=== PATIENT | female | born 1930 | race Asian ===

== ENCOUNTER 2017-10-17 22:13 | Observation (INO) ==
[2017-10-17 23:12] LABS: Basophils % 0.3 %; Eosinophils # 0.4 K/mcL (0.0-0.6); Eosinophils % 3.6 %; Hematocrit 34.6 % (35.3-44.9); Hemoglobin 11.4 g/dL (11.5-15.4); Immature Granulocytes % 0.7 % (0-4); Lymphocytes # 1.4 K/mcL (0.6-4.6); Lymphocytes % 13.5 %; Mean Corpuscular HGB Conc 32.9 g/dL (31.6-35.5); Mean Corpuscular Hemoglobin 31.9 pg (28.0-33.3); Mean Corpuscular Volume 96.9 fL (83.0-100.0); Mean Platelet Volume 9.9 fL (9.4-12.4); Monocytes # 1.3 K/mcL (0.0-1.3); Monocytes % 12.4 %; Platelet Count 169 K/mcL (140-400); Red Blood Count 3.57 M/mcL (3.82-4.97); Red Cell Distribution Width 13.2 % (11.5-14.5); Segmented Neutrophils % 69.5 %
[2017-10-17 23:18] LABS: INR 1.2; Prothrombin Time 12.8 Seconds (9.4-12.1)
[2017-10-17 23:20] LABS: Activated Partial Thrombo Time 30.5 Seconds (26.0-36.0)
[2017-10-17 23:32] LABS: BUN/Creatinine Ratio 23 (6-26); Blood Urea Nitrogen 11 mg/dL (8-23); Carbon Dioxide 25 mEq/L (23-29); Chloride 103 mEq/L (98-107); Glucose 109 mg/dL (70-105); Osmolality,Calculated 282 (280-300); Potassium 3.8 mEq/L (3.5-5.1); Sodium 136 mEq/L (136-145); eGFR For African Americans > 60 (> 60); eGFR For Non-African Americans > 60 (> 60)
--- NOTE | 2017-10-17 23:44 | Emergency Department Note ---
Disposition Clinical Impression: History of lung cancer, Elevated troponin Chest pain Qualifiers: Chest pain type: unspecified Qualified Code(s): R07.9 - Chest pain, unspecified Disposition: Admitted As Inpatient Condition: Good Referrals: Cong Leavitt MD [Primary Care Provider] - Forms: ED Satisfaction Letter Chest Pain HPI - General Chief Complaint: ED Chest Pain Stated Complaint: chest pain/CA pt Time Seen by Provider: 10/17/17 22:15 Source: patient, family Mode of arrival: EMS Limitations: no limitations Vital Signs Reviewed: Yes Nursing Notes Reviewed: Yes - History of Present Illness HPI Narrative: This is an 87 year-old female with history of CAD/CA, HLD, recent CVA, and recent diagnosis of lung cancer. She presents from her ECF with bilateral chest pain/tightness for the past day, worse with movement. The pain seems to be to the lateral chest green, same on both sides. Patient had a pleural drain placed 2 weeks ago at [facility]. She has had about 500 mL of mikel fluid drained every other day, and 375 mL was drained yesterday. Patient denies any associated fever, cough, dyspnea, or leg pain. She has noticed swelling to both ankles today. Pt complaint: chest pain Onset (ago): day(s) (1) Duration: gradually worsening Pain Location: other (bilateral) Severity: moderate Severity scale (1-10): 6 Quality: tightness Pain Radiation: none Improves with: nothing Worsens with: movement Associated symptoms: Reports: other (bilateral pedal edema). Denies: nausea, vomiting, dyspnea, fever, cough Treatments prior to arrival chest pain: other (morphine, roxicodone) - Related Data Home Medications Medication Instructions Recorded Confirmed Multivit-Min/Iron/Folic/Lutein 1 each PO DAILY 08/22/17 10/08/17 [Centrum Silver Women Tablet] Aspirin [Adult Aspirin Regimen] 81 mg PO DAILY 09/26/17 10/08/17 Atorvastatin [Lipitor] 40 mg PO HS 09/26/17 10/08/17 Allergies Allergy/AdvReac Type Severity Reaction Status Date / Time No Known Allergies Allergy Verified 09/20/16 16:45 All systems ED: reviewed and negative except as stated. Constitutional: Reports: as per HPI. Denies: fever Cardiovascular: Reports: as per HPI, chest pain, edema (bilateral pedal edema) Respiratory: Denies: cough, dyspnea Gastrointestinal: Denies: abdominal pain, vomiting Chest Pain PMH - Past Medical History Medical history: Reports: cancer, CVA, TIA, other Surgical history: Reports: hysterectomy Psychiatric history: Reports: no psych history POT LINER history: Reports: no POT LINER history - Social History Smoking Status: Former smoker Alcohol use: Reports: none Drug use: Reports: none Physical Exam - General Limitations: no limitations General appearance: alert, in no apparent distress - Head Head exam: atraumatic, normocephalic - Eye Eye exam: Present: normal appearance - ENT ENT exam: normal exam - Neck Neck exam: Present: normal inspection - Chest Chest inspection: Present: normal inspection, other (drain site clean (bandage placed yesterday was not removed)) - Respiratory Respiratory exam: Absent: respiratory distress, wheezes, other (?diminished in bases bilaterally) - Cardiovascular Cardiovascular exam: Present: regular rate, normal rhythm, normal heart sounds - Abdominal Exam Abdominal exam: Present: soft, Non-Tender. Absent: distention - Extremities Exam Extremities exam: Present: pedal edema (trace, bilateral). Absent: calf tenderness - Back Exam Back exam: Present: normal inspection - Neurological Exam Neurological exam: Present: alert, oriented X3. Absent: motor sensory deficit - Psychiatric Psychiatric exam: Present: normal affect, normal mood - Skin Skin exam: Present: warm, dry, intact. Absent: diaphoresis Course - Reevaluation(s) Reevaluation #1: On recheck, patient is resting comfortably. Her pain is improved. Chest CTA pending. As patient's troponin is elevated, we will admit her to the hospital for rule out. At shift change, I'm signing the case over to Dr. Adam to review her chest CT result, but I'll go ahead and call for admission. Time: 00:37 - Consultations Consultation #1: Discussed case with Dr. Muhammad, and patient accepted for admission. Time: 00:48 Vital Signs Temperature 98.5 F 10/17/17 22:16 Pulse Rate 90 10/17/17 22:16 Respiratory Rate 18 10/17/17 22:16 Blood Pressure 134/79 10/17/17 22:16 O2 Sat by Pulse Oximetry 100 10/17/17 22:16 Temperature 98.5 F 10/17/17 22:16 Pulse Rate 94 10/17/17 23:30 Respiratory Rate 16 10/17/17 23:30 Blood Pressure 111/64 10/17/17 23:30 O2 Sat by Pulse Oximetry 96 10/17/17 23:30 Oxygen Delivery Oxygen Delivery Nasal Cannula Chest Pain - Lab Data Lab results reviewed: Yes I reviewed the patient's lab results. Result diagrams: 10/17/17 22:54 10/17/17 22:54 Lab Results 10/17/17 10/17/17 10/17/17 Range/Units 22:54 22:54 22:54 WBC 10.1 (4.3-11.1) K/mcL RBC 3.57 L (3.82-4.97) M/mcL Hgb 11.4 L (11.5-15.4) g/dL Hct 34.6 L (35.3-44.9) % MCV 96.9 (83.0-100.0) fL MCH 31.9 (28.0-33.3) pg MCHC 32.9 (31.6-35.5) g/dL RDW 13.2 (11.5-14.5) % Plt Count 169 (140-400) K/mcL MPV 9.9 (9.4-12.4) fL Immature Gran % 0.7 (0-4) % Seg Neutrophils % 69.5 % Lymphocytes % 13.5 % Monocytes % 12.4 % Eosinophils % 3.6 % Basophils % 0.3 % Neutrophils # 7.0 (1.6-8.9) K/mcL Lymphocytes # 1.4 (0.6-4.6) K/mcL Monocytes # 1.3 (0.0-1.3) K/mcL Eosinophils # 0.4 (0.0-0.6) K/mcL Basophils # 0.0 (0.0-0.2) K/mcL PT 12.8 H (9.4-12.1) Seconds INR 1.2 APTT 30.5 (26.0-36.0) Seconds Sodium (136-145) mEq/L Potassium (3.5-5.1) mEq/L Chloride (98-107) mEq/L Carbon Dioxide (23-29) mEq/L BUN (8-23) mg/dL Creatinine (0.60-1.20) mg/dL Est GFR ( Amer) (> 60) Est GFR (Non-Af Amer) (> 60) BUN/Creatinine Ratio (6-26) Glucose (70-105) mg/dL Calculated Osmolality (280-300) Calcium (8.6-10.3) mg/dL Troponin I (< 0.04) ng/mL B-Natriuretic Peptide 121 H (Less than 100) pg/mL 10/17/17 Range/Units 22:54 WBC (4.3-11.1) K/mcL RBC (3.82-4.97) M/mcL Hgb (11.5-15.4) g/dL Hct (35.3-44.9) % MCV (83.0-100.0) fL MCH (28.0-33.3) pg MCHC (31.6-35.5) g/dL RDW (11.5-14.5) % Plt Count (140-400) K/mcL MPV (9.4-12.4) fL Immature Gran % (0-4) % Seg Neutrophils % % Lymphocytes % % Monocytes % % Eosinophils % % Basophils % % Neutrophils # (1.6-8.9) K/mcL Lymphocytes # (0.6-4.6) K/mcL Monocytes # (0.0-1.3) K/mcL Eosinophils # (0.0-0.6) K/mcL Basophils # (0.0-0.2) K/mcL PT (9.4-12.1) Seconds INR APTT (26.0-36.0) Seconds Sodium 136 (136-145) mEq/L Potassium 3.8 (3.5-5.1) mEq/L Chloride 103 (98-107) mEq/L Carbon Dioxide 25 (23-29) mEq/L BUN 11 (8-23) mg/dL Creatinine 0.48 L (0.60-1.20) mg/dL Est GFR ( Amer) > 60 (> 60) Est GFR (Non-Af Amer) > 60 (> 60) BUN/Creatinine Ratio 23 (6-26) Glucose 109 H (70-105) mg/dL Calculated Osmolality 282 (280-300) Calcium 9.0 (8.6-10.3) mg/dL Troponin I 0.13 H* (< 0.04) ng/mL B-Natriuretic Peptide (Less than 100) pg/mL - EKG Data EKG attestation: Yes I reviewed and interpreted this EKG. EKG shows normal: sinus rhythm Rate: normal Rhythm: NSR [place]/QRS: normal Ectopy: PVC (occasional) Interpretation: nonspecific ST-T wave changes
[2017-10-17] MEDS ORDERED: Isovue-370 500 ML INFUS..BTL IV ONE (23:46)
[2017-10-17] MEDS ORDERED: *HR* OxyCODONE/APAP 5/325 TABLET PO ONE (23:46)
[2017-10-17 23:47] LABS: Troponin I 0.13 ng/mL (< 0.04)
[2017-10-17] MEDS ORDERED: Aspirin 325 MG TABLET PO ONE (23:53)
[2017-10-18] MEDS ORDERED: Naloxone 0.4 MG/ML INJ IVP PRN (02:54)
[2017-10-18] MEDS ORDERED: Ondansetron 4 MG/2 ML VIAL IVP PRN (02:58)
[2017-10-18] MEDS ORDERED: Heparin 25,000 UNIT/500 ML D5W 25,000 UNIT/500 ML BAG IVC SCH ×2 (03:00→03:15)
[2017-10-18] MEDS ORDERED: *HR* Heparin 5,000 UNIT/ML VIAL IVP ONE (03:04)
[2017-10-18] MEDS ORDERED: *HR* Heparin 5,000 UNIT/ML VIAL IVP PRN ×2 (03:04)
--- NOTE | 2017-10-18 03:08 | Internal Med History&Physical ---
Date of Encounter: 10/18/17 Time of Encounter: 02:00 Internal Medicine - H&P: HPI Chief complaint: Chest pain Admitted From: Emergency Dept Plans for Post Hospital Care: Transfer Inp Rehab Fac History of present illness: Ms. Lind is a 87 year old female with history of recent CVA without residual deficits, and recently diagnosed lung cancer (adenocarcinoma) who presented with chest pain which became severe this evening. She states that she has been having issues with chest pain ever since having pleurex catheter placed on the right side to drain a malignant pleural effusion. She developed worsening chest pain last night which was severe and radiated "everywhere". She has a difficult time describing the pain or explaining where the pain was located. Family who is present in the room state that she appeared to be in severe pain, and she is typically very stoic so they were very concerned. She is unsure if she was short of breath during the chest pain episode, and the pain was relieved in the ED with PO narcotics. Currently she states that she is chest pain free. EKG was without ischemic changes but troponin was mildly elevated at 0.13. She was told that she had an PR many years ago, did not have LHC or stents, and has had no further issues with chest pain and has not had any recent cardiac evaluation. Past Med Surg Social Fam HX - Past Medical History Medical history: cancer (Lung adenocarcinoma diagnosed 09/2017), coronary artery disease (PR ~40 years ago), CVA, TIA, other Psychiatric history: no psych history - Past Surgical History Surgical History: hysterectomy - Social History Smoking Status: Former smoker Smokeless Tobacco Status: No Alcohol use: none Drug use: none - Family History Mother History Unknown: Yes Father History Unknown: Yes Internal Medicine - H&P: Meds Multivit-Min/Iron/Folic/Lutein [Centrum Silver Women Tablet] 1 each PO DAILY [History] Aspirin [Adult Aspirin Regimen] 81 mg PO DAILY 09/26/17 [History] Atorvastatin [Lipitor] 40 mg PO HS 09/26/17 [History] Acetaminophen [Non-Aspirin] 325 mg PO PRN PRN 10/18/17 [History] Clopidogrel Bisulfate [Plavix] 75 mg PO DAILY 10/18/17 [History] Docusate Sodium [Stool Softener] 100 mg PO BID 10/18/17 [History] Hydrocortisone 2.5% CREAM [Cortaid] 1 unit .ROUTE BID 10/18/17 [History] Lidoderm 5% patch 1 patch DAILY 10/18/17 [History] Lipitor 10/18/17 [History] MS Contin 15 mg PO BID 10/18/17 [History] Oxycodone HCl [Oxaydo] 5 mg PO Q6HR PRN 10/18/17 [History] Sennosides [Senna] 8.6 mg PO DAILY 10/18/17 [History] 3 Allergy/AdvReac Type Severity Reaction Status Date / Time No Known Allergies Allergy Verified 09/20/16 16:45 All Systems PM: A 10-system review of systems was performed and is negative for pertinent findings except as documented above in the HPI. - Constitutional Constitutional: anorexia, weakness - Cardiovascular Cardiovascular ROS IM: chest pain - Respiratory Respiratory: no cough - Gastrointestinal Gastrointestinal: nausea - Neurological Neurological ROS: no confusion - Psychiatric Psychiatric: no confusion - Constitutional Vitals: Temp Pulse Resp BP Pulse Ox 98.5 F 97 14 110/59 97 10/17/17 22:16 10/18/17 01:30 10/18/17 01:30 10/18/17 01:30 10/18/17 02:33 General appearance: Present: A&O X 3, no acute distress - Head Head exam: Present: atraumatic - Eye Eye exam: Present: EOMI, sclera anicteric - ENT ENT exam: Present: mucous membranes moist - Neck Neck exam general surgery: Present: supple - Respiratory Respiratory exam: Present: CTAB - Cardiovascular Cardiovascular exam: Present: RRR. Absent: diastolic murmur, gallop, rubs, systolic murmur - GI/Abdominal GI/Abdominal exam: Present: normal bowel sounds, soft. Absent: distended, tenderness - Extremities Exam Extremities exam: Present: pedal edema (1+ edema to bilateral ankles) - Neurological Exam Neurological exam: Present: no focal deficits - Skin Skin exam: Absent: rash Internal Med - H&P Results - Labs CBC & Chem 7: 10/18/17 03:48 10/18/17 03:48 - Assessment and plan (1) Chest pain Current Visit: Yes Status: Acute Assessment and plan: Atypical, likely related to lung cancer/pleurevac/etc, however it is concerning that her troponin is elevated and she has reported history of CAD. CTA negative for PE. Patient currently chest pain free. - Trend troponin - Heparin gtt - TTE in AM - consult cardiology for assistance Qualifiers: Chest pain type: unspecified Qualified Code(s): R07.9 - Chest pain, unspecified (2) History of lung cancer Current Visit: Yes Status: Acute Assessment and plan: With pleurex catheter in place. Has not started chemotherapy, some concern she may not tolerate chemotherapy based on performance status. - Time Spent With Patient Total time spent is greater than 50% in coordination of care (as documented) at patient's floor/unit and/or counseling patient: Greater than 35 minutes
[2017-10-18 04:24] LABS: BUN/Creatinine Ratio 19 (6-26); Blood Urea Nitrogen 10 mg/dL (8-23); Calcium 8.7 mg/dL (8.6-10.3); Carbon Dioxide 27 mEq/L (23-29); Chloride 103 mEq/L (98-107); Glucose 94 mg/dL (70-105); Osmolality,Calculated 281 (280-300); Potassium 3.8 mEq/L (3.5-5.1); Sodium 136 mEq/L (136-145); eGFR For African Americans > 60 (> 60); eGFR For Non-African Americans > 60 (> 60)
[2017-10-18 04:27] LABS: Basophils % 0.4 %; Eosinophils # 0.4 K/mcL (0.0-0.6); Eosinophils % 4.6 %; Hematocrit 33.4 % (35.3-44.9); Hemoglobin 10.9 g/dL (11.5-15.4); Immature Granulocytes % 0.8 % (0-4); Lymphocytes # 1.4 K/mcL (0.6-4.6); Lymphocytes % 14.9 %; Mean Corpuscular HGB Conc 32.6 g/dL (31.6-35.5); Mean Corpuscular Hemoglobin 31.5 pg (28.0-33.3); Mean Corpuscular Volume 96.5 fL (83.0-100.0); Mean Platelet Volume 10.1 fL (9.4-12.4); Monocytes # 1.2 K/mcL (0.0-1.3); Monocytes % 13.1 %; Nucleated Red Blood Cells 0.4 /100 WBC (0); Platelet Count 165 K/mcL (140-400); Red Blood Count 3.46 M/mcL (3.82-4.97); Red Cell Distribution Width 13.3 % (11.5-14.5); Segmented Neutrophils % 66.2 %
[2017-10-18] MEDS: Multivit/Ca/Min/Fe/FA 1 TAB TABLET PO SCH (08:40)
[2017-10-18] MEDS: Aspirin Enteric Coated 81 MG Tablet PO SCH (08:41)
--- NOTE | 2017-10-18 09:10 | Cardiology Consult Note ---
Date of Encounter: 10/18/17 Time of Encounter: 09:03 Assessment and Plan (1) Chest pain Current Visit: Yes Status: Acute Pleuritic chest pain in relation to pleurex catheter. Last night she developed severe pain and had difficulty describing per record. Launguage barrier noted. Troponin drawn and found to be mildly elevated at 0.13, 0.17. EKG - NSR with non -specific ST changes. CT of the chest reviewed. Negative for acute pulmonary embolism, however evaluation is limited in the right lower lobe distal segmental and subsegmental branches. No substantial interval change in mediastinal/hilar lymphadenopathy right infrahilar lung mass. 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 Decreased volume right pleural effusion. Will check TTE. Currently on heparin gtt for possible ACS. On asa and plavix for history of CVA. Qualifiers: Chest pain type: unspecified Qualified Code(s): R07.9 - Chest pain, unspecified (2) Elevated troponin Current Visit: Yes Status: Acute Mild troponin elevation likely demand ischemia in the setting of pulmonary vascular congestion in relation to lung mass. Check TTE. Discussion w patient/family: The assessment and plan as outlined above was discussed with the patient and/or family members who expressed understanding and agreement. All questions were answered. Thank you for involving us in the care of your patient. Please call with any questions. History of Present Illness Consult date: 10/18/17 Requesting physician: Jeni Muhammad Consult reason: Elevated troponin, chest pain Chief complaint: right sided chest pain History of present illness: Ms. Lind is a 87 year old female with past medical history of remote MS, CVA , recent diagnosis of lung adenocarcinoma, and recent pleurex catheter placement for persistent pleural effusion who presented with pain around her catheter site. During her stay she developed severe chest pain "all over." The pain increased with deep breaths and cough. Her pain improved when her catheter was removed she says. She still has catheter and dressing on her right side but she says it was removed. As of note there is a language barrier, she speaks some georgian and her daughter helps with communication. Her daughter is not at her bedside this morning. Cardiology consulted for elevated trioponin. Past Med Surg Social Fam HX - Past Medical History Medical history: cancer (Lung adenocarcinoma diagnosed 09/2017), coronary artery disease (MS ~40 years ago), CVA, TIA, other Psychiatric history: no psych history - Past Surgical History Surgical History: hysterectomy - Social History Smoking Status: Former smoker Smokeless Tobacco Status: No Alcohol use: none Drug use: none - Family History Mother History Unknown: Yes Father History Unknown: Yes Medications and Allergies Multivit-Min/Iron/Folic/Lutein [Centrum Silver Women Tablet] 1 each PO DAILY [History] Aspirin [Adult Aspirin Regimen] 81 mg PO DAILY 09/26/17 [History] Atorvastatin [Lipitor] 40 mg PO HS 09/26/17 [History] Acetaminophen [Non-Aspirin] 325 mg PO PRN PRN 10/18/17 [History] Clopidogrel Bisulfate [Plavix] 75 mg PO DAILY 10/18/17 [History] Docusate Sodium [Stool Softener] 100 mg PO BID 10/18/17 [History] Hydrocortisone 2.5% CREAM [Cortaid] 1 unit .ROUTE BID 10/18/17 [History] Lidoderm 5% patch 1 patch DAILY 10/18/17 [History] Lipitor 10/18/17 [History] MS Contin 15 mg PO BID 10/18/17 [History] Oxycodone HCl [Oxaydo] 5 mg PO Q6HR PRN 10/18/17 [History] Sennosides [Senna] 8.6 mg PO DAILY 10/18/17 [History] 3 Allergy/AdvReac Type Severity Reaction Status Date / Time No Known Allergies Allergy Verified 09/20/16 16:45 All Systems Review: The remainder of the systems were reviewed and are negative Physical Examination Vital Signs, Last 4 Hours Temp Pulse Resp BP Pulse Ox 10/18/17 07:11 97.6 F 82 12 109/71 93 General: Conversant, No Apparent Distress HEENT: Atraumatic, Normocephaly, Mucus Membranes Moist Neck: No JVD, Normal carotid pulses Cardiac: Reg Rate and Rhythm, Normal S1 and S2, No Murmur Lungs: Normal Breath Sounds, No Wheeze, Rales, Rhonchi Neuro: Alert and responsive, No focal deficits noted Abdomen: Soft, Non-Tender Skin: No rashes noted on visualized skin Musculoskeletal: Other (right back and side tender to palpation) Extremities: No Clubbing, No Cyanosis, No Edema, Normal Pulses Results 10/18/17 03:48 10/18/17 03:48 Lab Results 10/18/17 10/18/17 10/18/17 03:48 03:48 03:48 WBC 9.0 Hgb 10.9 L Hct 33.4 L Plt Count 165 Sodium 136 Potassium 3.8 Chloride 103 Carbon Dioxide 27 BUN 10 Creatinine 0.52 L Glucose 94 Calcium 8.7 Troponin I 0.17 H* Chest X-Ray 10/17/17 22:44 IMPRESSION: Bilateral pleural effusions and mild interstitial edema, decreased since 09/26/2017. D/ / Hilton Rehman / Hilton Rehman Interpreting Provider: Hilton Rehman Chest CTA 10/18/17 00:00 IMPRESSION: Negative for acute pulmonary embolism, however evaluation is limited in the right lower lobe distal segmental and subsegmental branches. No substantial interval change in mediastinal/hilar lymphadenopathy right infrahilar lung mass. 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 Decreased volume right pleural effusion. D/ / 10/18/2017 07:53:12 Hilton Rehman / gabe Interpreting Provider: Hilton Rehman - Imaging and Cardiology Echo: pending - EKG Interpretation EKG results cardiology: personally reviewed Consult Discharge Plan - Plan Referrals: Cong Leavitt MD [Primary Care Provider] -
[2017-10-18] MEDS: *HR* Morphine Sulfate SR (12 HR) 15 MG TABLET.ER PO SCH (12:26)
[2017-10-18] MEDS: *HR* OxyCODONE Immed Rel 5 MG TABLET PO PRN ×2 (14:49→23:38)
[2017-10-19] MEDS: *HR* Morphine Sulfate SR (12 HR) 15 MG TABLET.ER PO SCH (00:41)
[2017-10-19] MEDS: Aspirin Enteric Coated 81 MG Tablet PO SCH (09:48)
[2017-10-19] MEDS: Multivit/Ca/Min/Fe/FA 1 TAB TABLET PO SCH (09:48)
[2017-10-19] MEDS ORDERED: *HR* Morphine Sulfate SR (12 HR) 15 MG TABLET.ER PO SCH (10:00)
[2017-10-19 10:47] LABS: Basophils % 0.4 %; Eosinophils # 0.5 K/mcL (0.0-0.6); Eosinophils % 4.7 %; Hematocrit 33.2 % (35.3-44.9); Hemoglobin 10.7 g/dL (11.5-15.4); Immature Granulocytes % 0.5 % (0-4); Lymphocytes # 1.3 K/mcL (0.6-4.6); Lymphocytes % 13.4 %; Mean Corpuscular HGB Conc 32.2 g/dL (31.6-35.5); Mean Corpuscular Hemoglobin 31.2 pg (28.0-33.3); Mean Corpuscular Volume 96.8 fL (83.0-100.0); Mean Platelet Volume 9.8 fL (9.4-12.4); Monocytes # 1.3 K/mcL (0.0-1.3); Monocytes % 12.8 %; Neutrophils # 6.8 K/mcL (1.6-8.9); Platelet Count 154 K/mcL (140-400); Red Blood Count 3.43 M/mcL (3.82-4.97); Red Cell Distribution Width 13.5 % (11.5-14.5); Segmented Neutrophils % 68.2 %
[2017-10-19 11:09] LABS: BUN/Creatinine Ratio 15 (6-26); Blood Urea Nitrogen 8 mg/dL (8-23); Calcium 8.7 mg/dL (8.6-10.3); Carbon Dioxide 27 mEq/L (23-29); Chloride 102 mEq/L (98-107); Glucose 123 mg/dL (70-105); Osmolality,Calculated 280 (280-300); Potassium 3.9 mEq/L (3.5-5.1); Sodium 135 mEq/L (136-145); eGFR For African Americans > 60 (> 60); eGFR For Non-African Americans > 60 (> 60)
[2017-10-19] MEDS ORDERED: *HR* OxyCODONE Immed Rel 5 MG TABLET PO PRN (12:54)
--- NOTE | 2017-10-19 15:01 | Cardiology Progress Note ---
Date of Encounter: 10/19/17 Time of Encounter: 15:00 Assessment and Plan (1) Chest pain Current Visit: Yes Status: Acute Pleuritic chest pain in relation to pleurex catheter described on my exam. During admission she developed severe pain and had difficulty describing per record. Language barrier noted. Daughter at bedside today. Troponin drawn and found to be mildly elevated at 0.13, 0.17, 0.13. EKG - NSR with non-specific ST changes. Chest pain appears to be pleuritic. TTE shows LVEF 60-65%. Mild left ventricular diastolic dysfunction. RV size not well obtained. Function is normal. Mild-moderate tricuspid regurgitation. Mild pulmonary hypertension. Okay to d/c heparin gtt. On asa and plavix for history of CVA. No indications for further cardiac testing at this time. Cardiology laureano sign off. Call with questions. Qualifiers: Chest pain type: unspecified Qualified Code(s): R07.9 - Chest pain, unspecified (2) Elevated troponin Current Visit: Yes Status: Acute Mild troponin elevation, suspect demand ischemia in the setting of pulmonary vascular congestion in relation to lung mass. TTE shows preserved LV function. Recommend continuing medical management. Discussion w patient/family: The assessment and plan as outlined above was discussed with the patient and/or family members who expressed understanding and agreement. All questions were answered. Thank you for involving us in the care of your patient. Please call with any questions. Subjective Principal diagnosis: chest pain Interval history: Patient resting quietly, daughter at bedside. Reports difficulty sleeping due to right side pain. Currently feeling better. Objective Vital Signs Temp Pulse Resp BP Pulse Ox 10/19/17 06:50 98.0 F 93 18 122/73 99 10/19/17 04:25 98.1 F 94 16 111/59 98 10/18/17 23:33 99.3 F 98 16 115/69 94 10/18/17 18:39 99.0 F 92 16 102/63 94 10/18/17 16:52 98.5 F 91 13 116/73 92 Intake and Output 10/18/17 10/19/17 10/19/17 23:59 07:59 15:59 Intake Total 410 / 410 83 / 83 30 / 30 Output Total 100 / 100 Balance 410 / 410 83 / 83 -70 / -70 Intake: IV Fluids 170 / 170 83 / 83 Heparin 25,000 UNIT/500 ML D5W 170 / 170 25,000 unit In 500 ml @ 12 UNIT /KG/HR 10.886 mls/hr IVC .Q24H [facility] Rx#:[id number] Oral 240 / 240 30 / 30 Output: Urine 100 / 100 Other: Meal Dinner Percent of Meal Consumed 5% General: Conversant, No Apparent Distress HEENT: Atraumatic, Normocephaly, Mucus Membranes Moist Neck: No JVD, Normal carotid pulses Cardiac: Reg Rate and Rhythm, Normal S1 and S2 Lungs: Normal Breath Sounds, No Wheeze, Rales, Rhonchi, Other (pleurex catheter on right.) Neuro: Alert and responsive, No focal deficits noted Abdomen: Soft, Non-Tender Skin: No rashes noted on visualized skin Musculoskeletal: No Chest Wall Tenderness Extremities: No Clubbing, No Cyanosis, No Edema, Normal Pulses Results 10/19/17 10:23 10/19/17 10:23 Lab Results 10/18/17 10/18/17 10/18/17 15:58 15:58 22:36 WBC Hgb Hct Plt Count APTT 57.7 H 87.7 H D Sodium Potassium Chloride Carbon Dioxide BUN Creatinine Glucose Calcium Troponin I 0.13 H* 10/19/17 10/19/17 10/19/17 04:57 10:23 10:23 WBC 9.9 Hgb 10.7 L Hct 33.2 L Plt Count 154 APTT 74.7 H Sodium 135 L Potassium 3.9 Chloride 102 Carbon Dioxide 27 BUN 8 Creatinine 0.53 L Glucose 123 H Calcium 8.7 Troponin I - Imaging and Cardiology Echo: report reviewed - EKG Interpretation EKG results cardiology: personally reviewed Consult Discharge Plan - Plan Referrals: Cong Leavitt MD [Primary Care Provider] -
[2017-10-19 15:05] LABS: Bilirubin,Urine Negative (Negative); Blood,Urine Trace (Negative); Clarity,Urine Clear (Clear); Color,Urine Yellow (Yellow); Glucose,Urine (UA) Normal (Normal); Ketones,Urine Negative (Negative); Leukocyte Esterase,Urine Negative (Negative); Nitrite,Urine Negative (Negative); Protein,Urine Negative (Neg-Trace); Specific Gravity,Urine 1.023 (1.010-1.025); Urobilinogen,Urine Normal (Normal)
[2017-10-19 15:42] VITALS: BP 110/50
[2017-10-19 15:52] LABS: Bacteria,Urine Few per hpf (None-Few); RBC,Urine 0-3 per hpf (0-3); Squamous Epithelial Cell,Urine Few per lpf (None-Few); WBC,Urine 0-3 per hpf (0-3)
--- NOTE | 2017-10-19 16:54 | Discharge Summary ---
- NOTES TO OUTPATIENT PROVIDER Notes to Outpatient Provider: Follow up with physician at [facility]. Give dose of pain medication oxycodone scheduled daily 30 minutes before thearpy. Follow up with traffic analyst and heme/onc as directed. Orders not resulted at time of discharge: Pending orders 10/20/17 05:00 PTT [Activated Partial Thrombo Time] [COAG] Timed Date of Encounter: 10/19/17 Time of Encounter: 16:42 - Discharge Diagnosis (1) Chest pain Priority: Primary Status: Resolved Qualifiers: Chest pain type: unspecified Qualified Code(s): R07.9 - Chest pain, unspecified (2) Elevated troponin Priority: Secondary Status: Acute (3) History of lung cancer Priority: Secondary Status: Chronic Hospital course: Ms. Lind is a 87 year old [place] female who was admitted for chest pain. She was admitted to general medical floor with telemetry. She was started on heparin drip. Cardiology was consulted. Troponin was trended and remained slightly elevated at 0.13 at 12 hours. EKG showed non-specific ST changes, otherwise normal. ECHO showed LVEF 60-65% with mild left ventricular diastolic dysfunction, mild-moderate tricuspid regurgitation, mild pulmonary hypertension , and normal function. Cardiology felt that mild troponin elevation was due to increased demand ischemia in the setting of pulmonary vascular congestion in relation to lung mass. In regards to her lung cancer, her pleurex catheter was drained today. She had some confusion this AM per daughter, so UA and CT head were obtained. Both were unremarkable with no acute issues. Patient is alert and oriented x 3 during my interview. Her pain is controlled. She participated in PT/OT without pain or issues. We will plan for transfer back to [facility] today. She will follow up with physician there. She will follow up with traffic analyst and heme/onc as directed. Patient has met maximum benefit of this hospitalization and will be discharged home in stable condition. Discharge discussed with: patient, family, nurse, case management, other ( Pharmacist) - Time Spent with Patient Total time spent providing and/or coordinating discharge services: Greater than 30 minutes - Discharge Medications Prescriptions: Oxycodone HCl [Oxaydo] 5 mg PO Q6HR PRN 3 Days #12 tablet.orl PRN Reason: Pain Morphine Sulfate [Arymo ER] 15 mg PO Q12H 3 Days #6 tab.po.er OxyCODONE Immed Rel [Roxicodone 5 MG] 5 mg PO DAILY 3 Days #3 tablet Home Medications: Multivit-Min/Iron/Folic/Lutein [Centrum Silver Women Tablet] 1 tab PO DAILY [History] Aspirin [Adult Aspirin Regimen] 81 mg PO DAILY 09/26/17 [History] Atorvastatin [Lipitor] 40 mg PO HS 09/26/17 [History] Acetaminophen [Non-Aspirin] 325 mg PO PRN PRN 10/18/17 [History] Clopidogrel Bisulfate [Plavix] 75 mg PO DAILY 10/18/17 [History] Docusate Sodium [Stool Softener] 100 mg PO BID 10/18/17 [History] Hydrocortisone 2.5% CREAM [Cortaid] 1 appl TP BID 10/18/17 [History] Lidocaine [Aspercreme] 1 patch TP DAILY 10/18/17 [History] Sennosides [Senna] 8.6 mg PO DAILY 10/18/17 [History] Morphine Sulfate [Arymo ER] 15 mg PO Q12H 3 Days #6 tab.po.er 10/19/17 [Rx] OxyCODONE Immed Rel [Roxicodone 5 MG] 5 mg PO DAILY 3 Days #3 tablet 10/19/17 [ Rx] Oxycodone HCl [Oxaydo] 5 mg PO Q6HR PRN 3 Days #12 tablet.orl 10/19/17 [Rx] Allergies/Adverse Reactions: 3 Allergy/AdvReac Type Severity Reaction Status Date / Time No Known Allergies Allergy Verified 09/20/16 16:45 Date of admission: 10/18/17 00:58 Primary care physician: Cong Leavitt MD Consults: 10/18/17 06:15 Consult to Cardiology [CONS] Routine Comment: Consulting Provider: Cardiology Deysi Reason for Consult: troponin elevation and chest pain Call Completed: No 10/19/17 10:14 Consult to Occupational Therapy [CONS] Routine Comment: Evaluate, develop and implement POC Reason for Consult: pt very weak and poss ecf Does patient have active BEDREST order?: No Is patient medically & hemodynamically stable?: Yes Consult to Physical Therapy [CONS] Routine Comment: Evaluate, develop and implement POC Reason for Consult: pt very weak and need ecf Does patient have active BEDREST order?: No Is patient medically & hemodynamically stable?: Yes Discharging clinician: Jose Alberto Hewitt Anticipated date of discharge: 10/19/17 - Constitutional Vitals: Temp Pulse Resp BP Pulse Ox 98.3 F 90 16 110/50 96 10/19/17 15:41 10/19/17 15:41 10/19/17 15:41 10/19/17 15:41 10/19/17 15:41 General appearance: Present: cooperative, A&O X 3, pleasant, no acute distress, answers questions appropriately - Respiratory Respiratory exam: Present: CTAB. Absent: accessory muscle use, rales, rhonchi, wheezes Additional comments: Normal WOB, pleurex catheter on right - Cardiovascular Cardiovascular exam: Present: RRR, +S1, +S2. Absent: diastolic murmur, gallop, rubs, systolic murmur Additional comments: No BLE edema - GI/Abdominal GI/Abdominal exam: Present: normal bowel sounds, soft. Absent: distended, hepatomegaly, mass, splenomegaly, tenderness - Psychiatric Psychiatric exam: Present: normal affect, normal mood. Absent: agitated, anxious, depressed - Skin Skin exam: Present: dry, intact, warm. Absent: cyanosis, rash - Patient Status Disposition: Transfer SNF Condition: Good Overall status at discharge: patient is progressing back to baseline - Discharge Instructions Follow Up With: Cong Leavitt MD [Primary Care Provider] - Additional Instructions: Follow up with physician at [facility]. Give dose of pain medication oxycodone scheduled daily 30 minutes before thearpy. Follow up with traffic analyst and heme/onc as directed. - Diet and Activity Activity: as per physical therapy Diet: regular diet
[2017-10-19] MEDS: *HR* OxyCODONE Immed Rel 5 MG TABLET PO PRN (17:10)
--- NOTE | 2017-10-19 17:19 | Physician Discharge Referral ---
ExtendedCare Referral Info Transfer To: [facility] Provider in Charge after Transfer: Other (SNF Physician) Institutional Level of Care: Skilled - Diagnosis (1) Chest pain Priority: Primary Status: Resolved (2) Elevated troponin Priority: Secondary Status: Acute (3) History of lung cancer Priority: Secondary Status: Chronic Prognosis: Poor (Lung Cancer) Aware of Diagnosis: Patient, Family Aware of Prognosis: Patient, Family - Transfer Medications Prescriptions: Oxycodone HCl [Oxaydo] 5 mg PO Q6HR PRN 3 Days #12 tablet.orl PRN Reason: Pain Morphine Sulfate [Arymo ER] 15 mg PO Q12H 3 Days #6 tab.po.er OxyCODONE Immed Rel [Roxicodone 5 MG] 5 mg PO DAILY 3 Days #3 tablet Home Medications: Multivit-Min/Iron/Folic/Lutein [Centrum Silver Women Tablet] 1 tab PO DAILY [History] Aspirin [Adult Aspirin Regimen] 81 mg PO DAILY 09/26/17 [History] Atorvastatin [Lipitor] 40 mg PO HS 09/26/17 [History] Acetaminophen [Non-Aspirin] 325 mg PO PRN PRN 10/18/17 [History] Clopidogrel Bisulfate [Plavix] 75 mg PO DAILY 10/18/17 [History] Docusate Sodium [Stool Softener] 100 mg PO BID 10/18/17 [History] Hydrocortisone 2.5% CREAM [Cortaid] 1 appl TP BID 10/18/17 [History] Lidocaine [Aspercreme] 1 patch TP DAILY 10/18/17 [History] Sennosides [Senna] 8.6 mg PO DAILY 10/18/17 [History] Morphine Sulfate [Arymo ER] 15 mg PO Q12H 3 Days #6 tab.po.er 10/19/17 [Rx] OxyCODONE Immed Rel [Roxicodone 5 MG] 5 mg PO DAILY 3 Days #3 tablet 10/19/17 [ Rx] Oxycodone HCl [Oxaydo] 5 mg PO Q6HR PRN 3 Days #12 tablet.orl 10/19/17 [Rx] Allergies/Adverse Reactions: 3 Allergy/AdvReac Type Severity Reaction Status Date / Time No Known Allergies Allergy Verified 09/20/16 16:45 - Respiratory Orders Oxygen / L per min (2L NC PRN SOB) Smoking Cessation: Smoking cessation has been advised. For more information, call the [place] Tobacco Quit Line at 0-316-XODU-NOW. - Advance Directives Code Status: Full Code - Mobility Orders Chair (TID), Ambulate (Per PT) - Rehabiliation Orders Rehab Potential: Fair Rehab Orders: Evaluation for Physical Therapy, Evaluation for Occupational Therapy - Diet Orders Regular CERTIFICATION: I certify that the transfer of the above named patient to an Extended Care Facility is necessary for the continuing treatment of the diagnosis listed. The above information is true and accurate reflection of patient's current condition. Confidential - Redisclosure prohibited without a patient's written consent.
[2017-10-19] MEDS ORDERED: *HR* Heparin 5,000 UNIT/ML VIAL SQ SCH (18:00)
--- NOTE | 2017-10-20 05:53 | Electrocardiograph Report ---
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
[2017-10-20] MEDS ORDERED: Sennosides 8.6 MG TABLET PO SCH (09:00)
[2017-10-20] MEDS ORDERED: *HR* OxyCODONE Immed Rel 5 MG TABLET PO SCH (09:00)
== END 2017-10-19 18:20 ==
LOC: 2ANU 22:13 → EMEROO 22:13 → 2ANU 10-18 01:50
PROVIDERS: ADMIT Internal Medicine; ATTEND Internal Medicine